=== PATIENT | female | born 1990 | race American Indian/Alaskan Native ===

== ENCOUNTER 2018-10-30 14:11 | Inpatient (IN) | payer MEDICAID ==
[~2018-10-30] VITALS: Ht 160 cm; Wt 56.9 kg
[2018-10-30] MEDS ORDERED: SODIUM CHLORIDE 0.9% 1,000 ML IV ONE (14:30)
[2018-10-30 15:38] LABS: BASOPHILS % 0.7 % (0.0-2.0); EOSINOPHILS % 0.6 % (0.0-5.0); HEMATOCRIT. 35.7 % (36.0-48.0); HEMOGLOBIN. 11.5 g/dL (12.0-16.0); LYMPHOCYTES % 32.1 % (20.0-50.0); MEAN CORPUSCULAR HEMOGLOBIN 27.8 pg (28.0-32.0); MEAN CORPUSCULAR VOLUME 86.5 fL (81.0-99.0); MEAN PLATELET VOLUME 7.3 fl (7.4-10.4); MONOCYTES % 10.7 % (2.0-8.0); NEUTROPHILS % 55.9 % (40.0-76.0); PLATELET 306 x1000/uL (130-400); RED BLOOD CELL COUNT 4.12 mill/uL (4.2-5.4); RED CELL DISTRIBUTION WIDTH 14.9 % (11.6-14.6)
[2018-10-30 15:39] LABS: CHLORIDE 106 mEq/L (98-107)
[2018-10-30 15:46] LABS: HCG SCREEN NEGATIVE
[2018-10-30 15:49] LABS: PHENOBARBITAL < 2.1 ug/mL (15.0-40.0)
[2018-10-30 16:10] LABS: CARBAMAZEPINE 20.8 ug/mL (4-12)
[2018-10-30] MEDS ORDERED: POTASSIUM CHLORIDE 20MEQ TABLET SR PO ONE ×2 (16:45→17:30)
[2018-10-30] MEDS ORDERED: ACTIVATED CHARCOAL 50 G/240 ML TUBE PO ONE (17:15)
[2018-10-30] MEDS ORDERED: MAGNESIUM/ALUMINUM HYDROXIDE/SIMETHICONE 30ML UDC PO PRN (17:30)
[2018-10-30] MEDS ORDERED: ZOLPIDEM TARTRATE 5MG TABLET PO PRN (17:30)
[2018-10-30] MEDS ORDERED: GUAIFENESIN 200MG/10ML SUGAR FREE UDC PO PRN (17:30)
[2018-10-30] MEDS ORDERED: NITROGLYCERIN 0.4MG TABLET SL SL PRN (17:30)
[2018-10-30] MEDS ORDERED: DOCUSATE SODIUM 100MG CAPSULE PO PRN (17:30)
[2018-10-30] MEDS ORDERED: IPRATROPIUM/ALBUTEROL 0.5-3(2.5)MG/3ML NEB INH PRN (17:30)
[2018-10-30] MEDS ORDERED: KETOROLAC 15MG/ML VIAL IV PRN (17:30)
[2018-10-30] MEDS ORDERED: ACETAMINOPHEN 325MG TABLET PO PRN (17:30)
[2018-10-30] MEDS ORDERED: NA PHOS,M-B/NA PHOS,DI-BA ENEMA 118ML PR PRN (17:30)
[2018-10-30] MEDS ORDERED: ONDANSETRON HCL 4MG/2ML INJ IV PRN (17:30)
[2018-10-30] MEDS ORDERED: CLONIDINE 0.1MG TABLET PO PRN (17:30)
[2018-10-30 20:00] VITALS: BP 127/78
[2018-10-30 20:30] VITALS: BP 127/78
[2018-10-30] MEDS ORDERED: LEVE1000 PO (22:07)
[2018-10-30] MEDS ORDERED: CARB200T PO (22:07)
[2018-10-30] MEDS ORDERED: KCL 20MEQ/100ML PREMIX 100 ML IV NR (23:00)
[2018-10-31] VITALS: BP 109/60
[2018-10-31 02:53] LABS: *AMPHETAMINES SCREEN URINE NEGATIVE (NEGATIVE); *BARBITURATES SCREEN URINE NEGATIVE (NEGATIVE); *COCAINE SCREEN URINE NEGATIVE (NEGATIVE); METHADONE URINE SCREEN NEGATIVE (NEGATIVE)
[2018-10-31 02:54] LABS: CANNABINOID URINE SCREEN NEGATIVE (NEGATIVE); OPIATES URINE SCREEN NEGATIVE (NEGATIVE); PHENCYCLIDINE URINE SCREEN NEGATIVE (NEGATIVE)
[2018-10-31 03:01] LABS: *BENZODIAZEPINES SCREEN URINE PRESUMTIVE POSITIVE (NEGATIVE)
[2018-10-31 04:00] VITALS: BP 127/69
[2018-10-31] MEDS: LORAZEPAM 2MG/ML CPJ IV PRN ×2 (06:16→21:03)
[2018-10-31] MEDS ORDERED: VALPROATE SODIUM 250MG/5ML UDC PO SCH (07:45)
[2018-10-31 08:01] VITALS: BP 100/55
[2018-10-31] MEDS: FAMOTIDINE 20MG TABLET PO SCH ×2 (08:49→21:03)
[2018-10-31 12:00] VITALS: BP 101/63
[2018-10-31] MEDS: VALPROATE SODIUM 250MG/5ML UDC PO SCH ×2 (13:24→21:00)
[2018-10-31 16:00] VITALS: BP 103/52
[2018-10-31] MEDS: CARBAMAZEPINE 100MG TABLET CHEW PO SCH (17:20)
[2018-10-31 20:00] VITALS: BP 106/70
[2018-10-31] MEDS: LEVETIRACETAM 500MG TABLET PO SCH (21:02)
[2018-11-01] VITALS: BP 115/67
[2018-11-01 04:00] VITALS: BP 104/88
[2018-11-01] MEDS: VALPROATE SODIUM 250MG/5ML UDC PO SCH ×3 (05:54→21:10)
[2018-11-01 08:00] VITALS: BP 110/56
[2018-11-01] MEDS: CARBAMAZEPINE 100MG TABLET CHEW PO SCH ×2 (08:54→18:08)
[2018-11-01] MEDS: LEVETIRACETAM 500MG TABLET PO SCH ×2 (08:54→21:10)
[2018-11-01] MEDS: FAMOTIDINE 20MG TABLET PO SCH ×2 (08:55→21:10)
[2018-11-01 12:00] VITALS: BP 99/51
[2018-11-01 12:45] LABS: CHLORIDE 106 mEq/L (98-107)
[2018-11-01 13:10] LABS: CARBAMAZEPINE 6.2 ug/mL (4-12)
[2018-11-01 16:00] VITALS: BP 106/69
[2018-11-01 20:00] VITALS: BP 106/58
[2018-11-02] VITALS: BP 116/62
[2018-11-02 04:00] VITALS: BP 96/70
[2018-11-02] MEDS: VALPROATE SODIUM 250MG/5ML UDC PO SCH (05:55)
[2018-11-02 08:00] VITALS: BP 105/56
[2018-11-02] MEDS: LEVETIRACETAM 500MG TABLET PO SCH (08:29)
[2018-11-02] MEDS: FAMOTIDINE 20MG TABLET PO SCH ×2 (08:29→08:34)
[2018-11-02] MEDS: CARBAMAZEPINE 100MG TABLET CHEW PO SCH (08:29)
[2018-11-02 11:42] VITALS: BP 105/56
[2018-11-02] MEDS ORDERED: LEVETIRACETAM 500MG TABLET PO SCH (21:00)
== END 2018-11-02 12:15 | disposition home or self-care (01) | DRG 812 ==
LOC: ER 15:04 → 8WST 17:10 → ENRESERV 19:09
PROVIDERS: ADMIT Internal Medicine; ATTEND Internal Medicine
DX: T42.1X1A Poisoning by iminostilbenes, accidental (unintentional), initial encounter (principal); G92 Toxic encephalopathy; D64.9 Anemia, unspecified; E87.6 Hypokalemia; G40.909 Epilepsy, unspecified, not intractable, without status epilepticus; Z98.2 Presence of cerebrospinal fluid drainage device; Y92.89 Other specified places as the place of occurrence of the external cause
CPT/HCPCS: 36415; 71045; 80048; 80156; 80165; 80184; 80185; 80305; 83036; 84703; 93005; 96360; 99285; G0482; J2060; J3480; J7030